=== PATIENT | female | born 1955 | race Two or more races ===

== ENCOUNTER 2017-04-07 20:40 | Emergency (ER) | payer OTHER ==
[2017-04-07 20:50] VITALS: BP 116/79; PULSE 87; RESP 17; TEMP 99; O2SAT 93
--- NOTE | 2017-04-07 21:12 | EDPHY ---
H & P Smoking Status: Current some day smoker Time Seen by Provider: 04/07/17 20:50 HPI/ROS: CHIEF COMPLAINT: Scalp laceration HISTORY OF PRESENT ILLNESS: 61-year-old female presents to the emergency department with scalp laceration. Just prior to arrival the patient tripped on some flag stone and fell and hit the left side of her head. She did not lose consciousness. This was a witnessed fall. She denies a headache. Denies neck or back pain. Denies chest pain or difficulty breathing. Denies chest pain or difficulty breathing or any presyncopal symptoms prior to her fall. She believes her tetanus shot is current. REVIEW OF SYSTEMS: Constitutional: No fever, no chills. Eyes: No double or blurry vision. ENT: No sore throat. Respiratory: No cough, no shortness of breath. Cardiac: No chest pain. Gastrointestinal: No abdominal pain, vomiting or diarrhea. Genitourinary: No dysuria. Musculoskeletal: No neck or back pain. Skin: Scalp laceration. No rashes. Neurological: No headache. 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 Mentating normally and answering questions appropriately. Eyes: Pupils equal and round. Extraocular motions are all intact. ENT: Mouth: Mucous membranes moist. Respiratory: No wheezing, rhonchi, or rales, lungs are clear to auscultation. Cardiovascular: Regular rate and rhythm. Gastrointestinal: Abdomen is soft and nontender, no masses, no rebound or guarding, bowel sounds normal. Neurological: Alert and oriented x 3, cranial nerves II through XII grossly intact Skin: Warm and dry, no rashes. 3 cm left parietal scalp laceration. No active bleeding noted. Nontender to palpate. No evidence of depressed skull fracture. Musculoskeletal: Nontender to palpate along the cervical, thoracic or lumbar spine. Neck is supple. Extremities: Full range of motion and no peripheral edema. Psychiatric: Patient is oriented X 3, there is no agitation. (Aislinn Acuña) Constitutional: Initial Vital Signs Temperature (C) 37.2 C 04/07/17 20:46 Heart Rate 87 04/07/17 20:46 Respiratory Rate 17 04/07/17 20:46 Blood Pressure 116/79 04/07/17 20:46 O2 Sat (%) 93 04/07/17 20:46 O2 Delivery Mode Room Air Allergies/Adverse Reactions: Penicillins Allergy (Verified 04/07/17 20:46) Home Medications: Medication Instructions Recorded Zocor 04/07/17 Medical Decision Making Procedures: Laceration repair. Verbal consent was obtained from the patient. The 3 cm laceration on the left parietal scalp was anesthetized using 1% lidocaine with epinephrine. The wound was irrigated with saline, draped and explored to its base with a gloved finger. There were no deep structures involved. The wound was repaired with 10 miguel. The wound repair was complex. The procedure was performed by myself. (Aislinn Acuña) ED Course/Re-evaluation: 61-year-old female presents to the emergency department with scalp laceration. The wound was repaired, see procedure note. I explained to the patient as well as friend at bedside the pros and cons of CT imaging of her brain including radiation exposure. Patient declined CT scan of her brain. I feel that the patient has a capacity to make this decision. Patient is comfortable being discharged home. She will go home with her friend will watch her closely and bring her back if she develops worsening headache, vomiting, altered mental status or any other concerns. (Aislinn Acuña) I did not see this patient while she was in the emergency department. However her care was discussed with the PA while the patient was in the department. I agree with treatment plan and management (Abdirizak Moreira) Differential Diagnosis: Head injury including but not limited to concussion, skull fracture, intraparenchymal contusion, subarachnoid, subdural and epidural hematoma. (Aislinn Acuña) Departure - Departure Disposition: Home, Routine, Self-Care Clinical Impression: Scalp laceration Qualifiers: Encounter type: initial encounter Qualified Code(s): S01.01XA - Laceration without foreign body of scalp, initial encounter Condition: Good Instructions: Care For Your Stitches (ED), Laceration (ED), Head Injury (ED), Acute Wounds (ED) Additional Instructions: Wound Care Follow-Up: Removal of sutures in 7 days. Suture removal is complimentary in uncomplicated cases. Infection or abnormal findings would require reevaluation by the MD. In that case, you may be billed. Avoid any activity that might put you at risk for another head injury for at least 1 week. Return if you developed worsening headache, vomiting, altered mental status, or if you feel worse in any way. Referrals: ALEXIS PADILLA [Other] - As per Instructions
== END 2017-04-07 21:40 | disposition home or self-care (01) ==
PROC: 0HQ0XZZ Repair Scalp Skin, External Approach (ICD-10-PCS; principal; 2017-04-07)
DX: S01.01XA Laceration without foreign body of scalp, initial encounter (principal); F17.200 Nicotine dependence, unspecified, uncomplicated; I10 Essential (primary) hypertension; W01.198A Fall on same level from slipping, tripping and stumbling with subsequent striking against other object, initial encounter; Y99.8 Other external cause status; Y93.89 Activity, other specified